=== PATIENT | female | born 1990 | race Two or more races ===

== ENCOUNTER 2018-11-08 22:44 | Inpatient (IN) | payer MEDICAID ==
[~2018-11-08] VITALS: Ht 167.6 cm; Wt 77.1 kg
[2018-11-08] MEDS ORDERED: PROAIR HFA8.5 GM INH (22:57)
[2018-11-08 23:00] VITALS: BP 108/42
--- NOTE | 2018-11-08 23:00 | NUR ---
ED Nurse Note: Pt arrived ambulatory to ED with SOB and wheezing. Pt states her albuterol prescription is empty and she hasnt had her treatments in 4 days. Pt states she has hx of intubation. Last one was last year. Current vital signs steady. O2 sat: 98%. BP WNL. HR 98. Will continue to monitor.
[2018-11-08] MEDS ORDERED: Ipratropium 0.02% Inh Soln 2.5ml UD HHN ONE (23:15)
[2018-11-08] MEDS ORDERED: Albuterol ud Inhalation HHN ONE (23:15)
--- NOTE | 2018-11-08 23:35 | Emergency Room Report ---
History of Present Illness General Chief Complaint: Asthma Source: Patient Present Illness HPI Patient presents with complaints of asthma exacerbation Reports that she has been out of her medication for the past 3 days and has not become more congested Having increased cough Denies any fevers Patient has significant asthma with last hospital presentation about one month ago Denies any fevers or chills patient does report that she has required to be intubated in the past Denies any focal weakness denies any recent travel Allergies: Coded Allergies: No Known Allergies (Unverified , 11/08/18) Patient History Past Medical History: see triage record Pertinent Family History: none Last Menstrual Period: 11/03/18 Now: No Reviewed Nursing Documentation: PMH: Agreed; PSxH: Agreed Nursing Documentation-PMH Past Medical History: No History, Except For Hx Asthma: Yes Review of Systems All Other Systems: negative except mentioned in HPI Physical Exam Vital Signs Date Time Temp Pulse Resp B/P (MAP) Pulse Ox O2 Delivery O2 Flow Rate FiO2 11/08/18 22:53 98.4 104 26 108/42 100 11/08/18 23:21 Room Air 21 Sp02 EP Interpretation: reviewed, normal General Appearance: mild distress - Short of breath Head: normocephalic, atraumatic Eyes: bilateral eye PERRL, bilateral eye EOMI ENT: hearing grossly normal, normal pharynx, TMs + canals normal, uvula midline Neck: full range of motion, supple, no meningismus, no bony tend Respiratory: no retraction, no accessory muscle use, wheezing - Bilaterally Cardiovascular #1: normal peripheral pulses, regular rate, rhythm, no edema, no gallop, no JVD, no murmur Gastrointestinal: normal bowel sounds, non tender, soft, no mass, no organomegaly, non-distended, no guarding, no hernia, no pulsatile mass, no rebound Genitourinary: no CVA tenderness Musculoskeletal: normal inspection Neurologic: oriented x3, responsive, employment interviewer III-XII nml as tested, motor strength/ tone normal, sensory intact Psychiatric: mood/affect normal Skin: normal color, no rash, warm/dry, palpation normal Lymphatic: normal inspection, no adenopathy Procedures Critical Care Time Critical Care Time 40 minutes for multiple re-evaluations continued care and evaluation of airway concern for respiratory failure not including any procedural time Medical Decision Making Diagnostic Impression: Primary Impression: Asthma attack ER Course Given the patient's history and presentation breathing treatments were initiated emergently Patient placed on cardiac monitoring Other differentials such as pneumonia, bronchitis, influenza also entertained After several attempts in the emergency room patient continues to have significant wheezing Symptomatic with her asthma IV is established and patient also provided with magnesium And at this time requires further inpatient care Labs Test 11/09/18 00:05 White Blood Count 11.0 K/UL (4.8-10.8) Red Blood Count 5.33 M/UL (4.20-5.40) Hemoglobin 13.8 G/DL (12.0-16.0) Hematocrit 42.7 % (37.0-47.0) Mean Corpuscular Volume 80 FL (80-99) Mean Corpuscular Hemoglobin 25.9 PG (27.0-31.0) Mean Corpuscular Hemoglobin Concent 32.3 G/DL (32.0-36.0) Red Cell Distribution Width 13.6 % (11.6-14.8) Platelet Count 223 K/UL (150-450) Mean Platelet Volume 7.4 FL (6.5-10.1) Neutrophils (%) (Auto) 56.7 % (45.0-75.0) Lymphocytes (%) (Auto) 21.6 % (20.0-45.0) Monocytes (%) (Auto) 7.7 % (1.0-10.0) Eosinophils (%) (Auto) 13.3 % (0.0-3.0) Basophils (%) (Auto) 0.6 % (0.0-2.0) Sodium Level 139 MMOL/L (136-145) Potassium Level 4.3 MMOL/L (3.5-5.1) Chloride Level 102 MMOL/L (98-107) Carbon Dioxide Level 29 MMOL/L (21-32) Anion Gap 8 mmol/L (5-15) Blood Urea Nitrogen 12 mg/dL (7-18) Creatinine 0.8 MG/DL (0.55-1.30) Estimat Glomerular Filtration Rate > 60 mL/min (>60) Glucose Level 72 MG/DL (74-106) Calcium Level 9.1 MG/DL (8.5-10.1) Urine Opiates Screen Negative (NEGATIVE) Urine Barbiturates Screen Negative (NEGATIVE) Phencyclidine (PCP) Screen Negative (NEGATIVE) Urine Amphetamines Screen Positive (NEGATIVE) Urine Benzodiazepines Screen Negative (NEGATIVE) Urine Cocaine Screen Negative (NEGATIVE) Urine Marijuana (THC) Screen Negative (NEGATIVE) Rhythm Strip Diag. Results EP Interpretation: yes Rate: 88 Rhythm: NSR, no PVC's, no ectopy Chest X-Ray Diagnostic Results Chest X-Ray Diagnostic Results : Chest X-Ray Ordered: Yes # of Views/Limited/Complete: 1 View Indication: Shortness of Breath EP Interpretation: Yes Interpretation: no effusion, no pneumothorax, other - Question regarding increased markings bilaterally more on the left on the right Impression: Other - Question patchy infiltrate Electronically Signed by: Dagmar Torres DO Last Vital Signs Date Time Temp Pulse Resp B/P (MAP) Pulse Ox O2 Delivery O2 Flow Rate FiO2 11/08/18 23:22 105 16 98 Room Air 21 11/08/18 22:53 98.4 108/42 Status: improved Disposition: ADMITTED INPATIENT Condition: Serious Scripts Trimethoprim/Sulfamethoxazole (Bactrim Ds Tablet) 1 Each Tablet 1 TAB ORAL TWICE A DAY for 7 Days, TAB Prov: Sondra Shaw MD 11/09/18 Methylprednisolone (Methylprednisolone*) 4MG Dspk 4 MG ORAL DIRECTED for 6 Days, #21 EA 0 Refills Day 1: Two tablets before breakfast, one after lunch, one after dinner, and two at bedtime. If started late in the day, take all six tablets at once or divide into two or three doses, unless otherwise directed by prescriber. Day 2: One tablet before breakfast, one after lunch, one after dinner, and two at bedtime Day 3: One tablet before breakfast, one after lunch, one after dinner, and one at bedtime Day 4: One tablet before breakfast, one after lunch, and one at bedtime Day 5: One tablet before breakfast and one at bedtime Day 6: One tablet before breakfast Prov: Sondra Shaw MD 11/09/18 Albuterol Sulfate* (ALBUTEROL SULFATE HHN*) 2.5 Mg/3 Ml Vial.neb 3 ML INH Q4H PRN for 30 Days, EA Prov: Sondra Shaw MD 11/09/18 Referrals: NOT CHOSEN IPA/,REFERRING (PCP) Dagmar Torres DO Nov 08, 2018 23:35
--- NOTE | 2018-11-08 23:40 | NUR ---
ED Nurse Note: Pt currently receiving breathing treatment. Tolerating well. Shows no signs of acute distress. Will continue to monitor
[2018-11-09] MEDS ORDERED: Albuterol ud Inhalation HHN ONE ×3 (00:15→07:15)
[2018-11-09] MEDS ORDERED: Levalbuterol Inh UD 1.25mg/0.5ml HHN ONE (01:45)
--- NOTE | 2018-11-09 02:15 | NUR ---
ED Nurse Note: Wheezing heard bilaterally upon inhale and exhale. O2 saturation @ 98%. Pt coughing up phlegm. Currently resting comfortably. Pt put on NC2L while resting.
[2018-11-09 02:29] VITALS: BP 104/42
--- NOTE | 2018-11-09 04:20 | NUR ---
ED Nurse Note: Pt to be admitted, [id number] inserted, fluids and mag sulfate currently running. Pt on 2L NC, currently resting comfortably. VSS. In acute distress. Will continue to monitor
[2018-11-09 04:30] LABS: BASOPHILS % (AUTO) 0.6 % (0.0-2.0); EOSINOPHILS % (AUTO) 13.3 % (0.0-3.0); HEMATOCRIT 42.7 % (37.0-47.0); HEMOGLOBIN 13.8 G/DL (12.0-16.0); LYMPHOCYTES % (AUTO) 21.6 % (20.0-45.0); MEAN CORPUSCULAR VOLUME 80 FL (80-99); MONOCYTES % (AUTO) 7.7 % (1.0-10.0); NEUTROPHILS % (AUTO) 56.7 % (45.0-75.0); PLATELET COUNT 223 K/UL (150-450); RED BLOOD COUNT 5.33 M/UL (4.20-5.40); RED CELL DISTRIBUTION WIDTH 13.6 % (11.6-14.8)
[2018-11-09 04:39] LABS: ANION GAP 8 mmol/L (5-15); BLOOD UREA NITROGEN 12 mg/dL (7-18); CALCIUM 9.1 MG/DL (8.5-10.1); CARBON DIOXIDE 29 MMOL/L (21-32); CHLORIDE 102 MMOL/L (98-107); CREATININE 0.8 MG/DL (0.55-1.30); POTASSIUM 4.3 MMOL/L (3.5-5.1); SODIUM 139 MMOL/L (136-145)
[2018-11-09 05:52] VITALS: BP 109/66
[2018-11-09] MEDS ORDERED: Promethazine/Codeine 5ml UD ORAL ONE (07:00)
[2018-11-09] MEDS ORDERED: Ipratropium 0.02% Inh Soln 2.5ml UD HHN ONE (07:15)
[2018-11-09 07:19] VITALS: BP 117/58
[2018-11-09] MEDS ORDERED: Racemic EPINEPHrine 2.25% 0.5ml HHN ONE (07:30)
--- NOTE | 2018-11-09 08:27 | NUR ---
ED Nurse Note: Called [facility]E spoke with Argelia the receiving nurse, unable to give report RN not ready. Per RN she needs 20minutes
--- NOTE | 2018-11-09 08:50 | NUR ---
ED Nurse Note: called [facility] again, Argelia RN was not available.
--- NOTE | 2018-11-09 08:55 | Diagnostic Imaging Report ---
Indication: Shortness of breath Technique: One view of the chest Comparison: none Findings: Inspiration is suboptimal. There is mild generalized interstitial prominence and marked central bronchial wall thickening. The heart size is normal. Impression: Interstitial prominence and marked central bronchial wall thickening. Nonspecific, could represent bronchitis, asthma, or interstitial edema. Correlate with clinical findings
--- NOTE | 2018-11-09 09:05 | NUR ---
ED Nurse Note: report given to Argelia RN per Argelia, bring up patient in 10 minutes, they're getting the new room ready 415
[2018-11-09] MEDS ORDERED: Albuterol/Ipratropium 3ml neb HHN PRN (09:15)
[2018-11-09] MEDS ORDERED: Promethazine/Codeine 5ml UD ORAL PRN (09:15)
[2018-11-09] MEDS ORDERED: LORazepam Inj 2mg/ml 1ml IV PRN (09:15)
[2018-11-09] MEDS ORDERED: Nitroglycerin Subl 0.4mg tab SL PRN (09:15)
[2018-11-09] MEDS ORDERED: Ketorolac 30mg Inj IV PRN (09:15)
[2018-11-09] MEDS ORDERED: Morphine Sulfate 2mg/ml Inj(IV/IM USE ONLY) IVP PRN (09:15)
--- NOTE | 2018-11-09 09:20 | NUR ---
ED Nurse Note: patient was transferred to in a wheelchair with all her belongings. endorsed to Argelia SIGALA at bedside.
[2018-11-09 09:48] VITALS: BP 110/68
[2018-11-09 12:00] VITALS: BP 111/67
[2018-11-09] MEDS ORDERED: Solu-MEDROL 125mg Inj IV SCH (12:00)
[2018-11-09] MEDS ORDERED: Piperacillin/Tazobactam 2.25 GM in D5W 55 ML IV SCH (14:00)
[2018-11-09] MEDS ORDERED: Zosyn 3.375gm q8h **Extended infusion IVPB SCH ×2 (14:00)
[2018-11-09] MEDS ORDERED: ALBUTEROL2.5 MG/3 M INH (14:55)
[2018-11-09] MEDS ORDERED: MEDROL DOSEPAK4 MG ORAL (14:56)
[2018-11-09] MEDS ORDERED: BACTRIM-DS1 EA ORAL (14:56)
--- NOTE | 2018-11-09 15:01 | Consultation ---
History of Present Illness General Date patient seen: Nov 09, 2018 Chief Complaint: Asthma Present Illness HPI 27 year old female with hx of asthma presented to ER with complaints of asthma exacerbation Reports that she has been out of her medication for the past 3 days and has not become more congested Having increased cough. Pt is admitted for acute exacerbation of asthma. Allergies: Coded Allergies: No Known Allergies (Unverified , 11/08/18) Medication History Scheduled Albuterol Sulfate* (Proair Hfa*), 1 PUFF INH Q6H, (Reported) Methylprednisolone (Methylprednisolone*), 4 MG ORAL DIRECTED Trimethoprim/Sulfamethoxazole (Bactrim Ds Tablet), 1 TAB ORAL TWICE A DAY Scheduled PRN Albuterol Sulfate* (Albuterol Sulfate Hhn*), 3 ML INH Q4H PRN Patient History Healthcare decision maker Resuscitation status Full Code Advanced Directive on File Past Medical/Surgical History Past Medical/Surgical History: (1) History of asthma (2) Acute asthma exacerbation Review of Systems All Other Systems: negative except mentioned in HPI Physical Exam General Appearance: WD/WN, no apparent distress Lines, tubes and drains: peripheral HEENT: normocephalic, anicteric Neck: non-tender, supple Respiratory/Chest: chest wall non-tender, lungs clear Breasts: no masses Cardiovascular/Chest: normal rate Abdomen: normal bowel sounds, non tender Last 24 Hour Vital Signs Date Time Temp Pulse Resp B/P (MAP) Pulse Ox O2 Delivery O2 Flow Rate FiO2 11/09/18 12:00 97.6 94 18 111/67 (82) 94 11/09/18 09:59 Room Air 11/09/18 09:48 98.6 97 18 110/68 (82) 94 11/09/18 09:40 97 19 Room Air 21 11/09/18 09:25 98.8 94 19 117/58 100 Nasal Cannula 2.0 28 11/09/18 08:15 106 19 100 Nasal Cannula 2.0 28 11/09/18 07:47 94 18 100 Nasal Cannula 2.0 28 11/09/18 07:45 94 18 100 Nasal Cannula 2.0 28 11/09/18 07:29 98 25 97 Nasal Cannula 2.0 28 11/09/18 07:28 98 25 Nasal Cannula 2.0 28 11/09/18 07:19 98.8 94 20 117/58 95 Room Air 11/09/18 05:52 98.8 80 20 109/66 100 Nasal Cannula 2.0 11/09/18 03:45 96 22 100 Nasal Cannula 2.0 28 11/09/18 02:29 98.2 95 16 104/42 98 Room Air 21 11/09/18 02:24 89 16 100 Nasal Cannula 2.0 28 11/09/18 02:06 103 19 100 Room Air 11/09/18 01:39 94 18 97 Room Air 11/09/18 00:31 96 19 100 Room Air 11/09/18 00:08 94 20 100 Room Air 11/08/18 23:55 94 20 100 Room Air 11/08/18 23:37 105 16 Room Air 11/08/18 23:22 105 16 98 Room Air 11/08/18 23:21 105 16 Room Air 11/08/18 23:00 98.4 98 26 108/42 100 11/08/18 22:53 98.4 104 26 108/42 100 Intake and Output 11/08/18 11/09/18 19:00 07:00 Intake Total 100 ml Balance 100 ml Intake IV Total 100 ml Laboratory Tests Test 11/09/18 00:05 White Blood Count 11.0 K/UL (4.8-10.8) H Red Blood Count 5.33 M/UL (4.20-5.40) Hemoglobin 13.8 G/DL (12.0-16.0) Hematocrit 42.7 % (37.0-47.0) Mean Corpuscular Volume 80 FL (80-99) Mean Corpuscular Hemoglobin 25.9 PG (27.0-31.0) L Mean Corpuscular Hemoglobin Concent 32.3 G/DL (32.0-36.0) Red Cell Distribution Width 13.6 % (11.6-14.8) Platelet Count 223 K/UL (150-450) Mean Platelet Volume 7.4 FL (6.5-10.1) Neutrophils (%) (Auto) 56.7 % (45.0-75.0) Lymphocytes (%) (Auto) 21.6 % (20.0-45.0) Monocytes (%) (Auto) 7.7 % (1.0-10.0) Eosinophils (%) (Auto) 13.3 % (0.0-3.0) H Basophils (%) (Auto) 0.6 % (0.0-2.0) Sodium Level 139 MMOL/L (136-145) Potassium Level 4.3 MMOL/L (3.5-5.1) Chloride Level 102 MMOL/L (98-107) Carbon Dioxide Level 29 MMOL/L (21-32) Anion Gap 8 mmol/L (5-15) Blood Urea Nitrogen 12 mg/dL (7-18) Creatinine 0.8 MG/DL (0.55-1.30) Estimat Glomerular Filtration Rate > 60 mL/min (>60) Glucose Level 72 MG/DL (74-106) L Calcium Level 9.1 MG/DL (8.5-10.1) Urine Opiates Screen Negative (NEGATIVE) Urine Barbiturates Screen Negative (NEGATIVE) Phencyclidine (PCP) Screen Negative (NEGATIVE) Urine Amphetamines Screen Positive (NEGATIVE) H Urine Benzodiazepines Screen Negative (NEGATIVE) Urine Cocaine Screen Negative (NEGATIVE) Urine Marijuana (THC) Screen Negative (NEGATIVE) Height (Feet): 5 Height (Inches): 6.00 Weight (Pounds): 170 Medications Current Medications Medications (Trade) Dose Ordered Sig/Atif Route PRN Reason Start Time Stop Time Status Last Admin Dose Admin Albuterol/ Ipratropium (Albuterol/ Ipratropium) 3 ml Q4H PRN HHN dyspnea 11/09/18 09:15 11/14/18 09:14 Dextrose (Dextrose 50%) 25 ml Q30M PRN IV Hypoglycemia 11/09/18 09:15 12/09/18 09:14 Dextrose (Dextrose 50%) 50 ml Q30M PRN IV Hypoglycemia 11/09/18 09:15 12/09/18 09:14 Heparin Sodium (Porcine) (Heparin 5000 units/ml) 5,000 units EVERY 12 HOURS SUBQ 11/09/18 21:00 12/09/18 20:59 Ketorolac Tromethamine (Toradol 30mg) 30 mg Q8H PRN IV moderate pain 4-11/09/18 09:15 11/14/18 09:14 Lorazepam (Ativan 2mg/ml 1ml) 0.5 mg Q4H PRN IV For Anxiety 11/09/18 09:15 11/16/18 09:14 Methylprednisolone Sodium Succinate (Solu-MEDROL) 60 mg EVERY 6 HOURS IV 11/09/18 12:00 12/09/18 11:59 11/09/18 12:45 Morphine Sulfate (Morphine Sulfate) 2 mg Q4H PRN IVP severe pain 7-10 11/09/18 09:15 11/16/18 09:14 Nitroglycerin (Ntg) 0.4 mg Q5M X 3 DOSES PRN SL Prn Chest Pain 11/09/18 09:15 12/09/18 09:14 Ondansetron HCl (Zofran) 4 mg Q6H PRN IVP Nausea & Vomiting 11/09/18 09:15 12/09/18 09:14 Piperacillin Sod/ Tazobactam Sod 3.375 gm/Sodium Chloride 110 ml @ 27.5 mls/hr EVERY 8 HOURS IVPB 11/09/18 14:00 11/14/18 13:59 11/09/18 14:38 Promethazine HCl/ Codeine (Phenergan with Codeine) 5 ml Q6H PRN ORAL cough 11/09/18 09:15 12/09/18 09:14 11/09/18 14:41 Temazepam (Restoril) 15 mg HSPRN PRN ORAL Insomnia 11/09/18 09:15 11/16/18 09:14 Theophylline ([place]) 100 mg EVERY 12 HOURS ORAL 11/09/18 21:00 12/09/18 20:59 Assessment/Plan Problem List: (1) Acute asthma exacerbation ICD Codes: J45.901 - Unspecified asthma with (acute) exacerbation SNOMED: [id number] Assessment/Plan Improving dc home with inhalers, abx and steroids Sondra Shaw MD Nov 09, 2018 15:01
[2018-11-09] MEDS ORDERED: Tubing IV Secondary IV ONE (16:20)
[2018-11-09] MEDS ORDERED: NS 275ml ONE (16:20)
--- NOTE | 2018-11-09 16:59 | NUR ---
NURSE NOTES: Patient transferred from ER at 0915 via wheelchair. Report received from ZAKIYA Gross. Belongings reviewed and accounted for. Patient oriented to room. Will continue to monitor.
--- NOTE | 2018-11-09 17:00 | NUR ---
NURSE NOTES: Patient discharged home via private vehicle. Belongings reviewed and accounted for. Discharge instructions given to patient. Prescriptions given to patient. IV removed. Patient stable upon discharge.
[2018-11-09] MEDS ORDERED: Theophylline ER 100mg ORAL SCH (21:00)
[2018-11-09] MEDS ORDERED: Heparin 5000 units/ml inj SUBQ SCH (21:00)
--- NOTE | 2018-11-10 09:41 | Discharge Summary ---
Discharge Summary Discharge Summary _ DATE OF ADMISSION: 11/09/2018 DATE OF DISCHARGE: 11/09/2018 DISCHARGED BY: Dr. Sondra Shaw [facility] HOSPITAL COURSE: Patient is a 27-year-old female, with history of asthma, presented to ED complaining of shortness of breath. Patient reported she had been out of her medications for 3 days and became more congested with increased cough. She denied fever. Denied any focal weakness. Denied any recent travel. On evaluation at ED, vital signs were stable. She was given nebulizer treatment. She continued to have wheezing. Blood work was stable. Chest x- ray showed interstitial prominence and marked central bronchial wall thickening. She was started on Levaquin. She was admitted for asthma exacerbation. Patient was admitted to [facility] floor. She was started on IV Solu-Medrol. She was given Zosyn. Patient was breathing well and was saturating well. It was eventually discharged home with inhalers to continue antibiotics and steroids. FINAL DIAGNOSES: Acute asthma exacerbation DISPOSITION: Patient was discharged home. DISCHARGE MEDICATIONS: Refer to Discharge Medication List. DISCHARGE INSTRUCTIONS: Follow-up in a week. I have been assigned to complete a discharge summary on this account, I was not involved with the patient's management. Linnette Rivas NP Nov 10, 2018 09:40
--- NOTE | 2018-11-12 16:23 | NUR ---
CASE MANAGEMENT: CM review and clinical information (face sheet/ ER MD notes/ H&P/ ) [facility] [phone] [id number]
== END 2018-11-09 16:21 | disposition home or self-care (01) | DRG 141 ==
LOC: EMR 23:13 → 4E 11-09 06:59 → EDBEDREQ 11-09 08:27
DX: J45.901 Unspecified asthma with (acute) exacerbation (principal)
CPT/HCPCS: 36415; 71045; 80048; 80307; 85025; 87040; 94640; 94664; 96365; 96368; 99285; J7620

== ENCOUNTER 2018-11-14 07:36 | Inpatient (IN) | payer MEDICAID ==
[2018-11-14] VITALS (42 sets, daily range): BP systolic 91–118; BP diastolic 46–96
[~2018-11-14] VITALS: Ht 165.1 cm; Wt 80.4 kg
[~2018-11-14 07:36] MED LIST: ALBUTEROL2.5 MG/3 M INH; BACTRIM-DS1 EA ORAL; MEDROL DOSEPAK4 MG ORAL; PROAIR HFA8.5 GM INH
[2018-11-14] MEDS ORDERED: Naloxone 1mg/ml 2ml IM ONE (07:45)
[2018-11-14] MEDS ORDERED: Ipratropium 0.02% Inh Soln 2.5ml UD HHN ONE ×3 (07:45→08:15)
[2018-11-14] MEDS ORDERED: Solu-MEDROL 125mg Inj IVP ONE (07:45)
[2018-11-14] MEDS ORDERED: Albuterol ud Inhalation HHN ONE (07:45)
--- NOTE | 2018-11-14 07:52 | NUR ---
ED Nurse Note: patient brought into ED with by her friend due to shortness of breath. patient is alert and awake, but not answering any questions at this time, patient is significantly having SOB, placed her on the monitor.
[2018-11-14] MEDS ORDERED: LORazepam Inj 2mg/ml 1ml IV ONE ×2 (08:00)
--- NOTE | 2018-11-14 08:00 | NUR ---
ED Nurse Note: ERMD at bedside. Applied non-behavioral restraints to bilateral hands and feet as patient is agitated and moving cardiac cables. Patient did not sustain any injury.
[2018-11-14] MEDS ORDERED: Naloxone 0.4mg/ml Inj IM ONE (08:15)
[2018-11-14] MEDS ORDERED: fentaNYL 100 mcg/2 mL IV ONE (08:15)
[2018-11-14] MEDS ORDERED: Propofol 200mg/20ml IV ONE (08:27)
--- NOTE | 2018-11-14 08:35 | NUR ---
ED Nurse Note: RN removed Versed 5mg by override and administered Versed 5mg IVP as patient became very agitated and pulling tubing and IV lines. Addendum: 11/14/18 at 1256 by CAROLA Verified the med with ZAKIYA Gross. SURENDRA at bedside.
--- NOTE | 2018-11-14 08:37 | NUR ---
ED Nurse Note: propofol drip started at 10mcg/hr per Dr. Nelson's order. patient is +2 RASS score.
--- NOTE | 2018-11-14 08:39 | NUR ---
ED Nurse Note: propofol drip increased to 20mcg/hr per Dr. Nelson's verbal order. Vitals:HR 138 RR 23 SpO2 100%, 157/93 BP.
[2018-11-14 08:43] LABS: ANION GAP 10 mmol/L (5-15); BLOOD UREA NITROGEN 16 mg/dL (7-18); CALCIUM 8.7 MG/DL (8.5-10.1); CARBON DIOXIDE 26 MMOL/L (21-32); CHLORIDE 102 MMOL/L (98-107); CREATININE 0.7 MG/DL (0.55-1.30); POTASSIUM 5.2 MMOL/L (3.5-5.1); SODIUM 137 MMOL/L (136-145)
--- NOTE | 2018-11-14 08:45 | Emergency Room Report ---
History of Present Illness General Chief Complaint: Dyspnea/Respdistress Source: Patient Present Illness HPI Patient came in for difficulty breathing. The patient has a history of asthma and has been to this emergency department multiple times for severe asthma exacerbations. Her last admission was within the last month. The patient is very short of breath. She is very anxious and agitated. She has a known history of drug abuse. The patient was unable to articulate a history to me secondary to respiratory distress and agitation. Allergies: Coded Allergies: No Known Allergies (Unverified , 11/08/18) Patient History Past Medical History: see triage record, asthma Social History: Reports: drug use; Denies: smoking, alcohol use Reviewed Nursing Documentation: PMH: Agreed; PSxH: Agreed Nursing Documentation-PMH Past Medical History: No History, Except For Hx Cardiac Problems: No Hx Asthma: Yes Hx Cancer: No Hx Gastrointestinal Problems: No Hx Neurological Problems: No Review of Systems All Other Systems: negative except mentioned in HPI Physical Exam Vital Signs Date Time Temp Pulse Resp B/P (MAP) Pulse Ox O2 Delivery O2 Flow Rate FiO2 11/14/18 07:42 96.1 129 16 156/81 100 Simple Mask 12.0 Sp02 EP Interpretation: reviewed, normal General Appearance: GCS 15, moderate distress, other - altered, agitated, at times lethargic Head: normocephalic, atraumatic Eyes: bilateral eye normal inspection, bilateral eye PERRL ENT: hearing grossly normal, normal pharynx, no angioedema, normal voice Neck: full range of motion, supple/symm/no masses Respiratory: chest non-tender, accessory muscle use, wheezing, expiration Cardiovascular #1: no edema, tachycardia Gastrointestinal: normal bowel sounds, non tender, soft, non-distended, no guarding, no rebound Rectal: deferred Musculoskeletal: back normal, gait/station normal, normal range of motion, non- tender Neurologic: alert, responsive, motor strength/tone normal, speech normal Psychiatric: memory normal, no suicidal/homicidal ideation, anxious Skin: normal color, no rash, warm/dry, well hydrated Procedures Intubation Intubation : Consent: Emergent Intubation Method: orotracheal Tube Size (cm): 7.5 Medications: Etomidate, Succinylcholine Breath Sounds after Intubation: equal Intubation Complications: no complications Post Intubation Xray: Yes Progress/Xray Impression: Appropriate tube placement Attempts: One Patient Tolerated: Well Complications: None Medical Decision Making Diagnostic Impression: Primary Impression: Respiratory failure Additional Impressions: Status asthmaticus Polysubstance dependence including opioid drug with daily use ER Course This patient presented in respiratory distress. She was wheezing, tachypneic and agitated. She was also altered and sleepy and at times would answer questions but at other times was lethargic. The patient had been to the emergency department recently, and had been found to be abusing drugs. Given the patient's presentation, I was concerned that the patient had overdosed on and opioid given how altered she was on arrival. The patient was given 0.4 mg of Narcan IM and the patient immediately woke up and became very agitated and combative. She also continued to have tachypnea, wheezing and dyspnea. The patient was combative with wearing the nebulizer mask and was agitated and a danger to herself. Also, the patient's ABG was consistent with respiratory failure. I didn't feel that noninvasive ventilation was an option for this very agitated and combative patient and that she needed an urgent airway. She was intubated by rapid sequence intubation. See my procedure note. The palpation was positive for multiple illicit drugs. I suspect that the patient' s respiratory failure are likely related to her polydrug abuse in addition to her known asthma. The patient required maximal doses of sedatives and remained ventilated in the emergency department. She is admitted to the ICU. This patient is critically ill. This patient required complex medical decision- making, aggressive intervention, extensive laboratory workup and monitoring. Critical care time: 40 minutes. Laboratory Tests Test 11/14/18 07:50 11/14/18 08:21 11/14/18 09:00 Arterial Blood pH 7.113 (7.350-7.450) Arterial Blood Partial Pressure CO2 86.9 mmHg (35.0-45.0) *H Arterial Blood Partial Pressure O2 108.9 mmHg (75.0-100.0) H Arterial Blood HCO3 27.2 mmol/L (22.0-26.0) H Arterial Blood Oxygen Saturation 96.2 % (95-100) Arterial Blood Base Excess -4.5 (-2-2) L Kike Test Positive Sodium Level 137 MMOL/L (136-145) Potassium Level 5.2 MMOL/L (3.5-5.1) H Chloride Level 102 MMOL/L (98-107) Carbon Dioxide Level 26 MMOL/L (21-32) Anion Gap 10 mmol/L (5-15) Blood Urea Nitrogen 16 mg/dL (7-18) Creatinine 0.7 MG/DL (0.55-1.30) Estimate Glomerular Filtration Rate > 60 mL/min (>60) Glucose Level 199 MG/DL (74-106) H Calcium Level 8.7 MG/DL (8.5-10.1) Total Bilirubin 0.3 MG/DL (0.2-1.0) Aspartate Amino Transferase (AST) 17 U/L (15-37) Alanine Aminotransferase (ALT) 19 U/L (12-78) Alkaline Phosphatase 93 U/L (46-116) Troponin I 0.000 ng/mL (0.000-0.056) Pro-B-Type Natriuretic Peptide 107 pg/mL (0-125) Total Protein 8.0 G/DL (6.4-8.2) Albumin 3.8 G/DL (3.4-5.0) Globulin 4.2 g/dL Albumin/Globulin Ratio 0.9 (1.0-2.7) L Triglycerides Level 52 MG/DL (30-150) Thyroid Stimulating Hormone (TSH) 0.823 uiU/mL (0.358-3.740) Serum Alcohol < 3 mg/dL White Blood Count 14.2 K/UL (4.8-10.8) H Red Blood Count 4.17 M/UL (4.20-5.40) L Hemoglobin 10.5 G/DL (12.0-16.0) L Hematocrit 36.4 % (37.0-47.0) L Mean Corpuscular Volume 87 FL (80-99) Mean Corpuscular Hemoglobin 25.3 PG (27.0-31.0) L Mean Corpuscular Hemoglobin Concent 29.0 G/DL (32.0-36.0) L Red Cell Distribution Width 15.0 % (11.6-14.8) H Platelet Count 215 K/UL (150-450) Mean Platelet Volume 8.3 FL (6.5-10.1) Neutrophils (%) (Auto) 74.0 % (45.0-75.0) Lymphocytes (%) (Auto) 10.5 % (20.0-45.0) L Monocytes (%) (Auto) 6.8 % (1.0-10.0) Eosinophils (%) (Auto) 7.8 % (0.0-3.0) H Basophils (%) (Auto) 0.8 % (0.0-2.0) Urine Color Yellow Urine Appearance Clear Urine pH 5 (4.5-8.0) Urine Specific [place] 1.030 (1.005-1.035) Urine Protein 3+ (NEGATIVE) H Urine Glucose (UA) Negative (NEGATIVE) Urine Ketones 1+ (NEGATIVE) H Urine Blood 3+ (NEGATIVE) H Urine Nitrite Negative (NEGATIVE) Urine Bilirubin Negative (NEGATIVE) Urine Urobilinogen Normal MG/DL (0.0-1.0) Urine Leukocyte Esterase Negative (NEGATIVE) Urine RBC 5-10 /HPF (0 - 2) H Urine WBC 0-2 /HPF (0 - 2) Urine Squamous Epithelial Cells Moderate /LPF (NONE/OCC) H Urine Bacteria Few /HPF (NONE) Urine HCG, Qualitative Negative (NEGATIVE) Urine Opiates Screen Positive (NEGATIVE) H Urine Barbiturates Screen Negative (NEGATIVE) Phencyclidine (PCP) Screen Negative (NEGATIVE) Urine Amphetamines Screen Positive (NEGATIVE) H Urine Benzodiazepines Screen Positive (NEGATIVE) H Urine Cocaine Screen Negative (NEGATIVE) Urine Marijuana (THC) Screen Negative (NEGATIVE) Laboratory Tests Test 11/14/18 07:50 11/14/18 08:21 Arterial Blood pH 7.113 (7.350-7.450) Arterial Blood Partial Pressure CO2 86.9 mmHg (35.0-45.0) *H Arterial Blood Partial Pressure O2 108.9 mmHg (75.0-100.0) H Arterial Blood HCO3 27.2 mmol/L (22.0-26.0) H Arterial Blood Oxygen Saturation 96.2 % (95-100) Arterial Blood Base Excess -4.5 (-2-2) L Kike Test Positive Sodium Level 137 MMOL/L (136-145) Potassium Level 5.2 MMOL/L (3.5-5.1) H Chloride Level 102 MMOL/L (98-107) Carbon Dioxide Level 26 MMOL/L (21-32) Anion Gap 10 mmol/L (5-15) Blood Urea Nitrogen 16 mg/dL (7-18) Creatinine 0.7 MG/DL (0.55-1.30) Estimate Glomerular Filtration Rate > 60 mL/min (>60) Glucose Level 199 MG/DL (74-106) H Calcium Level 8.7 MG/DL (8.5-10.1) Total Bilirubin 0.3 MG/DL (0.2-1.0) Aspartate Amino Transferase (AST) 17 U/L (15-37) Alanine Aminotransferase (ALT) 19 U/L (12-78) Alkaline Phosphatase 93 U/L (46-116) Troponin I Pending Pro-B-Type Natriuretic Peptide 107 pg/mL (0-125) Total Protein 8.0 G/DL (6.4-8.2) Albumin 3.8 G/DL (3.4-5.0) Globulin 4.2 g/dL Albumin/Globulin Ratio 0.9 (1.0-2.7) L Triglycerides Level 52 MG/DL (30-150) Thyroid Stimulating Hormone (TSH) 0.823 uiU/mL (0.358-3.740) Serum Alcohol < 3 mg/dL EKG Diagnostic Results Rate: tachycardiac Rhythm: other - S.tachycardia ST Segments: no acute changes Rhythm Strip Diag. Results EP Interpretation: yes Rate: 120's Rhythm: no PVC's, no ectopy, other - S.tachycardia Chest X-Ray Diagnostic Results Chest X-Ray Diagnostic Results : Chest X-Ray Ordered: Yes # of Views/Limited/Complete: 1 View Indication: Shortness of Breath EP Interpretation: Yes Interpretation: no consolidation, no effusion, no pneumothorax, no acute cardiopulmonary disease, other - Appropriate ET tube placement Impression: No acute disease Electronically Signed by: Ramona Nelson DO Last Vital Signs Date Time Temp Pulse Resp B/P (MAP) Pulse Ox O2 Delivery O2 Flow Rate FiO2 11/14/18 07:42 96.1 129 16 156/81 100 Simple Mask 12.0 Disposition: ADMITTED INPATIENT Condition: Critical Referrals: [facility]AN[facility],REFERRING (PCP) Ramona Nelson DO Nov 14, 2018 08:45
--- NOTE | 2018-11-14 08:54 | NUR ---
ED Nurse Note: Dr. Nelson gave verbal order to increase propofol to 50mcg/hr, patient is very agitated and fighting vent.
[2018-11-14 08:55] LABS: ALANINE AMINOTRANSFERASE 19 U/L (12-78); ALBUMIN 3.8 G/DL (3.4-5.0); ALBUMIN/GLOBULIN RATIO 0.9 (1.0-2.7); ALKALINE PHOSPHATASE 93 U/L (46-116); ASPARTATE AMINO TRANSFERASE 17 U/L (15-37); BILIRUBIN,TOTAL 0.3 MG/DL (0.2-1.0); TRIGLYCERIDES 52 MG/DL (30-150)
--- NOTE | 2018-11-14 08:55 | NUR ---
Note tamia in EDM - 11/14/18 at 0911 by LISA ED Nurse Note: Dr. Nelson gave verbal order to increase propofol to 50mcg/hr, patient is very agitated and fighting vent.
--- NOTE | 2018-11-14 09:00 | NUR ---
ED Nurse Note: Dr. Nelson made aware of Urine just sent down to lab for , Dr. Nelson said do CXR stat.
--- NOTE | 2018-11-14 09:04 | NUR ---
ED Nurse Note: cxr stat being done at the bedside.
[2018-11-14] MEDS ORDERED: Albuterol ud Inhalation ONE (09:05)
[2018-11-14 09:16] LABS: APPEARANCE,URINE CLEAR; BILIRUBIN, URINE NEGATIVE (NEGATIVE); GLUCOSE, URINE (UA) NEGATIVE (NEGATIVE); KETONES,URINE 1+ (NEGATIVE); LEUKOCYTE ESTERASE ,URINE NEGATIVE (NEGATIVE); NITRITE,URINE NEGATIVE (NEGATIVE); PH,URINE 5 (4.5-8.0); PROTEIN,URINE 3+ (NEGATIVE); UROBILINOGEN,URINE NORMAL MG/DL (0.0-1.0)
[2018-11-14 09:18] LABS: BASOPHILS % (AUTO) 0.8 % (0.0-2.0); EOSINOPHILS % (AUTO) 7.8 % (0.0-3.0); HEMATOCRIT 36.4 % (37.0-47.0); HEMOGLOBIN 10.5 G/DL (12.0-16.0); LYMPHOCYTES % (AUTO) 10.5 % (20.0-45.0); MEAN CORPUSCULAR VOLUME 87 FL (80-99); MONOCYTES % (AUTO) 6.8 % (1.0-10.0); PLATELET COUNT 215 K/UL (150-450); RED BLOOD COUNT 4.17 M/UL (4.20-5.40); WHITE BLOOD COUNT 14.2 K/UL (4.8-10.8)
[2018-11-14 09:19] LABS: COLOR,URINE YELLOW
--- NOTE | 2018-11-14 09:23 | NUR ---
RADIOLOGY: HCG WAS ORDERED AT THE TIME OF CXR REQUEST, AND RADIOLOGY WAITED AN HOUR FOR THE HCG TO BE DRAWN AND FOR RESULTS. AT THIS POINT, ER CALLED ABOUT CXR, AND WE SAID WE WERE WAITING ON HCG. ER PHYSICIAN OVERRULED HCG (NO RESULT YET) AND REQUESTED STAT CXR TO CHECK FOR POSITION OF RECENTLY PLACED ETT. AT THIS POINT, RADIOLOGY RESPONDED TO ER WITHIN 5 MIN. - NF
[2018-11-14] MEDS ORDERED: Etomidate 40mg/20ml Inj IV ONE (10:00)
[2018-11-14] MEDS ORDERED: Succinylcholine 20mg/ml 10ml vial ONE (10:00)
--- NOTE | 2018-11-14 10:00 | NUR ---
ED Nurse Note: Rechecked patient's non-behavioral restraints (soft) on bilateral wrists an feet. No injury noted.
--- NOTE | 2018-11-14 10:19 | Diagnostic Imaging Report ---
Indication: Shortness of breath, post intubation Technique: One view of the chest Comparison: 11/09/2018 Findings: Interim endotracheal intubation, endotracheal tube tip in good position approximately 4 cm above the roberto. No definite acute infiltrates, effusions, or congestion. Improved aeration on the current exam Impression: Satisfactory endotracheal intubation No definite acute pulmonary process
--- NOTE | 2018-11-14 10:50 | NUR ---
RESPIRATORY NOTE: pt came to ER for SOB, audible wheezing heard on expiration. MD ordered breathing tx and decided to intubated. pt now intubated with 7.5 ETT placed 24cm at the lip. ETT is secured via anchor fast with no prior redness or skin breakdown. pt has been placed on AC 22 400 50% +5 on initial vent settings. pt presents clear/white, thin and frothy secretion upon sxn. pt not in resp distress at this time. alarm are audible and set. will cont to monitor.
--- NOTE | 2018-11-14 11:00 | NUR ---
ED Nurse Note: Orogastric tube inserted @ 28inch as ordered. X-ray tech at bedside for tubing placement.
--- NOTE | 2018-11-14 11:12 | NUR ---
ED Nurse Note: patient is being transferred up to ICU with RT and 2RN with all of her belongingss
--- NOTE | 2018-11-14 11:30 | NUR ---
NURSE NOTES: Report received from Stephen Gross RN. Pt arrived via gurney. Belongings checked. Pt is sedated and on bilateral soft wrist restraints. Sinus tachy on captain waiter/waitress with HR 100's. Orally intubated ETT 7.5/ 24 cm at lip line. On Ventilator with AC 22, TV 400, FiO2 45%, P 5. O2 sat 100%. Labored breathing noted. OGT in place and clamped. No edema and no skin problem noted. Mehta in place draining to gravity. IV to right hand G20, left hand G22, and left FA G20 patent and asymptomatic. Bed in lowest position. Side rails up x3. Will resume plan of care.
--- NOTE | 2018-11-14 12:02 | Diagnostic Imaging Report ---
Indication: Post nasogastric tube placement Technique: One view of the chest Comparison: 2 hours earlier Findings: Stable satisfactory position of endotracheal tube. Interim placement of nasogastric tube, tip projected at the level gastric antrum. Lungs and pleural spaces remain clear. Impression: Satisfactory nasogastric intubation Otherwise stable findings as described
[2018-11-14] MEDS ORDERED: Albuterol/Ipratropium 3ml neb HHN PRN (12:15)
--- NOTE | 2018-11-14 12:20 | History and Physical ---
History of Present Illness General Reason for Hospitalization: Dyspnea/Respdistress Present Illness HPI 27 year old female with hx of asthma, presented with shortness. She was in respiratory failure in ER and was intubated, and started on Fentanyl drip and transferred to ICU. Allergies: Coded Allergies: No Known Allergies (Unverified , 11/08/18) Medication History Scheduled Albuterol Sulfate* (Proair Hfa*), 1 PUFF INH Q6H, (Reported) Methylprednisolone (Methylprednisolone*), 4 MG ORAL DIRECTED Trimethoprim/Sulfamethoxazole (Bactrim Ds Tablet), 1 TAB ORAL TWICE A DAY Scheduled PRN Albuterol Sulfate* (Albuterol Sulfate Hhn*), 3 ML INH Q4H PRN Patient History Healthcare decision maker Resuscitation status Advanced Directive on File Past Medical/Surgical History Past Medical/Surgical History: (1) History of asthma Review of Systems All Other Systems: negative except mentioned in HPI Physical Exam General Appearance: WD/WN Lines, tubes and drains: peripheral HEENT: normocephalic, atraumatic Neck: non-tender, normal alignment Respiratory/Chest: chest wall non-tender, lungs clear Cardiovascular/Chest: normal peripheral pulses, normal rate Abdomen: normal bowel sounds, non tender Genitourinary/Rectal: normal genital exam, normal rectal exam Extremities: normal range of motion Skin Exam: normal pigmentation 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 normal Last 24 Hour Vital Signs Date Time Temp Pulse Resp B/P (MAP) Pulse Ox O2 Delivery O2 Flow Rate FiO2 11/14/18 11:09 21 45 11/14/18 11:09 21 103/77 Mechanical Ventilator 45 11/14/18 11:04 Mechanical Ventilator 45 11/14/18 10:59 18 Mechanical Ventilator 45 11/14/18 10:54 18 Mechanical Ventilator 45 11/14/18 10:54 22 98/56 Mechanical Ventilator 45 11/14/18 10:49 20 Mechanical Ventilator 45 11/14/18 10:48 108 28 50 11/14/18 10:44 21 Mechanical Ventilator 45 11/14/18 10:39 22 Mechanical Ventilator 45 11/14/18 10:39 18 102/53 Mechanical Ventilator 45 11/14/18 10:34 22 Mechanical Ventilator 45 11/14/18 10:29 21 Mechanical Ventilator 45 11/14/18 10:24 21 Mechanical Ventilator 45 11/14/18 10:24 21 123/100 Mechanical Ventilator 45 11/14/18 10:19 21 Mechanical Ventilator 45 11/14/18 10:14 18 Mechanical Ventilator 45 11/14/18 10:09 19 Mechanical Ventilator 45 11/14/18 10:09 21 120/69 Mechanical Ventilator 45 11/14/18 10:01 121 21 Mechanical Ventilator 12.0 45 11/14/18 09:54 20 104/67 Mechanical Ventilator 45 11/14/18 09:39 21 118/91 Mechanical Ventilator 12.0 45 11/14/18 09:30 96.1 121 25 103/67 100 Mechanical Ventilator 12.0 45 11/14/18 09:24 22 123/91 Mechanical Ventilator 12.0 45 11/14/18 09:17 132 24 Mechanical Ventilator 50 11/14/18 09:09 24 103/54 Mechanical Ventilator 50 11/14/18 09:06 134 25 50 11/14/18 08:57 96.1 11/14/18 08:55 136 24 100 Mechanical Ventilator 50 11/14/18 08:54 26 141/120 Mechanical Ventilator 50 11/14/18 08:39 24 141/120 Mechanical Ventilator 50 11/14/18 08:37 24 157/93 Mechanical Ventilator 50 11/14/18 07:50 131 28 97 Room Air 21 11/14/18 07:42 96.1 129 16 156/81 100 Simple Mask 12.0 Laboratory Tests Test 11/14/18 07:50 11/14/18 08:21 11/14/18 08:50 11/14/18 09:00 Arterial Blood pH 7.113 (7.350-7.450) 7.272 (7.350-7.450) Arterial Blood Partial Pressure CO2 86.9 mmHg (35.0-45.0) *H 54.8 mmHg (35.0-45.0) H Arterial Blood Partial Pressure O2 108.9 mmHg (75.0-100.0) H 179.6 mmHg (75.0-100.0) H Arterial Blood HCO3 27.2 mmol/L (22.0-26.0) H 24.7 mmol/L (22.0-26.0) Arterial Blood Oxygen Saturation 96.2 % (95-100) 98.9 % (95-100) Arterial Blood Base Excess -4.5 (-2-2) L -2.8 (-2-2) L Kike Test Positive Positive Sodium Level 137 MMOL/L (136-145) Potassium Level 5.2 MMOL/L (3.5-5.1) H Chloride Level 102 MMOL/L (98-107) Carbon Dioxide Level 26 MMOL/L (21-32) Anion Gap 10 mmol/L (5-15) Blood Urea Nitrogen 16 mg/dL (7-18) Creatinine 0.7 MG/DL (0.55-1.30) Estimat Glomerular Filtration Rate > 60 mL/min (>60) Glucose Level 199 MG/DL (74-106) H Calcium Level 8.7 MG/DL (8.5-10.1) Total Bilirubin 0.3 MG/DL (0.2-1.0) Aspartate Amino Transf (AST/SGOT) 17 U/L (15-37) Alanine Aminotransferase (ALT/SGPT) 19 U/L (12-78) Alkaline Phosphatase 93 U/L (46-116) Troponin I 0.000 ng/mL (0.000-0.056) Pro-B-Type Natriuretic Peptide 107 pg/mL (0-125) Total Protein 8.0 G/DL (6.4-8.2) Albumin 3.8 G/DL (3.4-5.0) Globulin 4.2 g/dL Albumin/Globulin Ratio 0.9 (1.0-2.7) L Triglycerides Level 52 MG/DL (30-150) Thyroid Stimulating Hormone (TSH) 0.823 uiU/mL (0.358-3.740) Serum Alcohol < 3 mg/dL White Blood Count 14.2 K/UL (4.8-10.8) H Red Blood Count 4.17 M/UL (4.20-5.40) L Hemoglobin 10.5 G/DL (12.0-16.0) L Hematocrit 36.4 % (37.0-47.0) L Mean Corpuscular Volume 87 FL (80-99) Mean Corpuscular Hemoglobin 25.3 PG (27.0-31.0) L Mean Corpuscular Hemoglobin Concent 29.0 G/DL (32.0-36.0) L Red Cell Distribution Width 15.0 % (11.6-14.8) H Platelet Count 215 K/UL (150-450) Mean Platelet Volume 8.3 FL (6.5-10.1) Neutrophils (%) (Auto) 74.0 % (45.0-75.0) Lymphocytes (%) (Auto) 10.5 % (20.0-45.0) L Monocytes (%) (Auto) 6.8 % (1.0-10.0) Eosinophils (%) (Auto) 7.8 % (0.0-3.0) H Basophils (%) (Auto) 0.8 % (0.0-2.0) Urine Color Yellow Urine Appearance Clear Urine pH 5 (4.5-8.0) Urine Specific Christine 1.030 (1.005-1.035) Urine Protein 3+ (NEGATIVE) H Urine Glucose (UA) Negative (NEGATIVE) Urine Ketones 1+ (NEGATIVE) H Urine Blood 3+ (NEGATIVE) H Urine Nitrite Negative (NEGATIVE) Urine Bilirubin Negative (NEGATIVE) Urine Urobilinogen Normal MG/DL (0.0-1.0) Urine Leukocyte Esterase Negative (NEGATIVE) Urine RBC 5-10 /HPF (0 - 2) H Urine WBC 0-2 /HPF (0 - 2) Urine Squamous Epithelial Cells Moderate /LPF (NONE/OCC) H Urine Bacteria Few /HPF (NONE) Urine HCG, Qualitative Negative (NEGATIVE) Urine Opiates Screen Positive (NEGATIVE) H Urine Barbiturates Screen Negative (NEGATIVE) Phencyclidine (PCP) Screen Negative (NEGATIVE) Urine Amphetamines Screen Positive (NEGATIVE) H Urine Benzodiazepines Screen Positive (NEGATIVE) H Urine Cocaine Screen Negative (NEGATIVE) Urine Marijuana (THC) Screen Negative (NEGATIVE) Height (Feet): 5 Height (Inches): 5.00 Weight (Pounds): 150 Medications Current Medications Medications (Trade) Dose Ordered Sig/Atif Route PRN Reason Start Time Stop Time Status Last Admin Dose Admin Fentanyl Citrate 1000 mcg/Sodium Chloride 100 ml @ 0 mls/hr Q24H IV 11/14/18 10:00 11/14/18 13:30 11/14/18 10:09 Propofol 100 ml @ 0 mls/hr Q24H IV 11/14/18 08:15 11/14/18 13:30 11/14/18 08:37 Assessment/Plan Problem List: (1) History of asthma ICD Codes: Z87.09 - Personal history of other diseases of the respiratory system SNOMED: 379143286 (2) Acute asthma exacerbation ICD Codes: J45.901 - Unspecified asthma with (acute) exacerbation SNOMED: 062381901 Respiratory: monitor respiratory rate, adjust FIO2, CXR Cardiac: continue to monitor HR/BP Renal: increase IV fluid, check electrolytes Infectious Disease: check cultures, continue antibiotics Gastrointestinal: hold feedings Endocrine: check TSH Hematologic: transfuse if hgb<8.5 Neurologic: PRN Ativan, PRN Morphine, keep patient comfortable Affect: PRN ativan Prophylaxis: Protonix Time Spent (Minutes): 40 Notes Reviewed: teacher education instructor Discussed with: nurses, consultants, casework manager Sondra Shaw MD Nov 14, 2018 12:20
[2018-11-14] MEDS ORDERED: Midazolam/D5W 100ml 100 ML IVPB PRN (12:30)
--- NOTE | 2018-11-14 12:33 | NUR ---
NURSE NOTES: Dr Shaw here to see the patient. Updated him with pt's current condition. Order for breathing tx and sedation medication received, noted, and carried out. He will enter the rest admission orders by himself as per Dr Shaw.
[2018-11-14] MEDS: Albuterol/Ipratropium 3ml neb HHN SCH ×9 (12:43→22:27)
[2018-11-14] MEDS: D5 1/2NS 1,000 ML IV SCH (12:45)
--- NOTE | 2018-11-14 12:51 | NUR ---
RESPIRATORY NOTE: vent settings adjusted per . RN, aware
[2018-11-14] MEDS ORDERED: Albuterol ud Inhalation HHN SCH (13:00)
--- NOTE | 2018-11-14 14:05 | NUR ---
NURSE NOTES: Pt is drowsy and got agitated and restless and trying to remove ETT. Assisted to calm her down. Continuous reorientation given. Increased Fentanyl drip rate. Pt back to be sedated and calm. Will start Versed drip as per order.
[2018-11-14] MEDS: Piperacillin/Tazobactam 3.375 GM in D5W 110 ML IVPB SCH ×2 (15:07→21:20)
--- NOTE | 2018-11-14 17:00 | NUR ---
NURSE NOTES: OGT reinserted. Pt tolerated well. Will order KUB to check placement. Hold feeding until placement is confirmed.
[2018-11-14] MEDS: Solu-MEDROL 125mg Inj IV SCH ×2 (17:27→23:46)
--- NOTE | 2018-11-14 17:34 | History & Physical ---
History and Physical History & Physicial Dictated for Int Med-Dr Garvey no. [id number]. Harsha Rivera MD Nov 14, 2018 17:34
[2018-11-14] MEDS ORDERED: Albuterol/Ipratropium 3ml neb HHN SCH (18:00)
--- NOTE | 2018-11-14 19:33 | NUR ---
HAND-OFF: Report given to ZAKIYA Bell.
--- NOTE | 2018-11-14 20:00 | NUR ---
NURSE NOTES: Patient received from Delia SIGALA. Patient is sedated with RASS score of -2. Midazolam and Fentanyl gtt running via peripheral lines. Patient BP currently is 98/59 (68), RR 16, Spo2 100% while on 40% FiO2, HR is 86 SR. Patient is Afebrile and cool to touch. Bilateral soft wrist restraints noted, pulses noted, skin intact. Patient has L hand 22G, L FA 20G, R Hand 20G. Patient also has D51/2NS running at 50ml/hr. All IV lines are patent/asymptomatic/intact. Patient has Jevity 1.2 at 20ml to be hung, awaiting KUB result; OGT. ETT 7.5/24cm AC 16, 500ml, 40% FiO2, and peep of 5. Overall skin is intact. Bed alarm on, bed in lowest position, vent tubings checked, will continue to monitor.
--- NOTE | 2018-11-14 20:01 | NUR ---
NURSE NOTES: X-ray staff at bedside performing KUB for OGT confirmation
[2018-11-14] MEDS: Heparin 5000 units/ml inj SUBQ SCH (20:31)
--- NOTE | 2018-11-14 21:30 | History and Physical Report ---
DATE OF ADMISSION: 11/14/2018 CHIEF COMPLAINT: The patient is a 27-year-old female with history of asthma who presents with a chief complaint of shortness of breath. HISTORY OF PRESENT ILLNESS: The patient has a history of asthma. The patient was admitted to [facility] on November 09, 2018. Please see history and physical and discharge summary dictated at that time. The patient presented to [facility] complaining of shortness of breath and wheezing. The patient was emergently intubated in the emergency room. The patient is admitted to the intensive care unit. The patient is admitted for acute exacerbation of chronic asthma. REVIEW OF SYSTEMS: Unable to assess secondary to the patient's intubation status. PAST MEDICAL HISTORY: Significant for asthma. PAST SURGICAL HISTORY: The patient denies. CURRENT MEDICATIONS: 1. Albuterol metered-dose inhaler two puffs p.o. p.r.n. 2. Albuterol 2.5 mg nebulized q.4 h. p.r.n. 3. Methylprednisolone 4 mg p.o. daily. 4. Bactrim double-strength one tablet p.o. twice daily. ALLERGIES: No known drug allergies. SOCIAL HISTORY: The patient is single and lives alone. The patient denies tobacco or alcohol use. PHYSICAL EXAMINATION: VITAL SIGNS: Temperature 96.1, respirations 17, pulse 91, and blood pressure 112/62. GENERAL: The patient is a well-developed and well-nourished female, in no apparent distress. HEENT: Eyes, pupils are equal and responsive to light and accommodation. Extraocular movements are intact. NECK: Supple without lymphadenopathy. CHEST: Diffuse wheezes in bilateral lung carr. Otherwise, without crackles. CARDIOVASCULAR: Regular rhythm and rate. S1 and S2 are normal without murmurs, rubs, or gallops. ABDOMEN: Soft, nontender, and nondistended. Positive bowel sounds. No evidence of hepatosplenomegaly. Currently, no rebound or guarding noted. EXTREMITIES: Negative for clubbing, cyanosis, or edema. NEUROLOGIC: Cranial nerves II through XII are grossly intact without focal deficits. LABORATORY STUDIES: WBC 14.2, hemoglobin , hematocrit 36.4, and platelets 215,000. Sodium 137, potassium 5.2, chloride 102, CO2 26, BUN 16, creatinine 0.7, and glucose 199. Urine toxicology was positive for opiates, amphetamines, and benzodiazepine. A chest x-ray was reported as no acute disease. ASSESSMENT: This is a 27-year-old female. 1. Respiratory failure/acute asthma exacerbation. A Pulmonary consultation has been obtained with Dr. Sondra Shaw. The patient is currently intubated in the intensive care unit. The patient is currently sedated. The patient has been started empirically on intravenous Solu-Medrol. The patient has also been started on intravenous Zosyn. We will follow recommendations of Pulmonary. Harsha Rivera M.D. DR: ALYSSA JOB#: [id number] CC:
--- NOTE | 2018-11-14 22:20 | NUR ---
NURSE NOTES: Patient self extubated while on bilateral soft wrist restraints. Patient was on Fentanyl and versed. Sedation was stopped immediately, and NC at 4L applied. Patient was Saturating at 98-100%. RR ranging from 12-20. Patient is arousable to stimulus, pain, patient does open eyes to command but still slightly sedated. Will continue to monitor.
--- NOTE | 2018-11-14 22:20 | NUR ---
RESPIRATORY NOTE: Pt self extubated and currently on 4L NC SPO2 99%. Will continue to monitor pt
[2018-11-15] VITALS (15 sets, daily range): BP systolic 93–116; BP diastolic 40–68
--- NOTE | 2018-11-15 | NUR ---
NURSE NOTES: Patient is doing fine at this moment. RR ranging from 12-20 and patient is rousable to stimulus. BP within good range, afebrile, remains on NC 4L. Will continue to monitor.
[2018-11-15] MEDS: Albuterol/Ipratropium 3ml neb HHN SCH ×10 (00:07→21:31)
--- NOTE | 2018-11-15 01:00 | NUR ---
NURSE NOTES: Wasted Versed and fentanyl gtt accordingly, Charge Nurse Verified.
--- NOTE | 2018-11-15 02:00 | NUR ---
NURSE NOTES: Patient repositioned, arousable to stimulus but still slightly sedated. RR ranging 14-22, BP has been stable and Spo2 has remained above 98%. Patients does open eyes to verbal command. Afebrile at this time. Will continue to monitor.
--- NOTE | 2018-11-15 04:00 | NUR ---
NURSE NOTES: Cleaned patient and repositioned, patient is more awake but a little confused and disoriented. Reality reorientation provided. Patient able to follow conversation, BP has been stable. SpO2 98%, HR [address] ST.
[2018-11-15] MEDS: Solu-MEDROL 125mg Inj IV SCH ×4 (05:45→18:29)
[2018-11-15] MEDS: Piperacillin/Tazobactam 3.375 GM in D5W 110 ML IVPB SCH ×3 (05:45→22:50)
--- NOTE | 2018-11-15 06:00 | NUR ---
NURSE NOTES: Patient sleeping, vitals has remained stable, no form of acute distress observed, remains on Nasal canula. Will continue to monitor.
[2018-11-15 06:06] LABS: HEMATOCRIT 34.2 % (37.0-47.0); MEAN CORPUSCULAR VOLUME 80 FL (80-99); PLATELET COUNT 185 K/UL (150-450); RED BLOOD COUNT 4.26 M/UL (4.20-5.40); WHITE BLOOD COUNT 14.9 K/UL (4.8-10.8)
[2018-11-15 06:38] LABS: ALANINE AMINOTRANSFERASE 15 U/L (12-78); ALBUMIN 2.9 G/DL (3.4-5.0); ALBUMIN/GLOBULIN RATIO 0.9 (1.0-2.7); ALKALINE PHOSPHATASE 65 U/L (46-116); ANION GAP 7 mmol/L (5-15); ASPARTATE AMINO TRANSFERASE 11 U/L (15-37); BILIRUBIN,TOTAL 0.3 MG/DL (0.2-1.0); BLOOD UREA NITROGEN 8 mg/dL (7-18); CALCIUM 8.3 MG/DL (8.5-10.1); CARBON DIOXIDE 26 MMOL/L (21-32); CHLORIDE 102 MMOL/L (98-107); CREATININE 0.6 MG/DL (0.55-1.30); POTASSIUM 3.6 MMOL/L (3.5-5.1); SODIUM 135 MMOL/L (136-145)
--- NOTE | 2018-11-15 07:20 | NUR ---
NURSE NOTES: Report received from ZAKIYA Bell. Pt is drowsy and resting in bed. On bilateral soft wrist restraints. Sinus rhythm on yard hostler. On N/C 4L. O2 sat 100%. Mehta in place draining to gravity. IV to right hand G20, left hand G22, and left FA G20 patent and asymptomatic. D5 1/2NS is running at 50cc/hr. Bed in lowest position. Side rails up x3. Call light within reach. Will resume plan of care. Addendum: 11/15/18 at 0840 by COLLETTE JARAMILLO RN RN NURSE NOTES: Report received from ZAKIYA Bell. Pt is confused, trying to pull out IVs and get out of bed. On bilateral soft wrist restraints. Sinus rhythm on yard hostler. On N/C 4L. O2 sat 100%. Mehta in place draining to gravity. IV to right hand G20, left hand G22, and left FA G20 patent and asymptomatic. D5 1/2NS is running at 50cc/hr. Bed in lowest position. Side rails up x3. Call light within reach. Will resume plan of care.
--- NOTE | 2018-11-15 08:38 | NUR ---
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 STATUS ASTHMATICUS VS: BP 156/81, P 129, T 96.0, RR 16, SpO2 100% ON 12.0 O2 VENT FiO2 45 WBC 14.2, RBC 4.17, ABG pH 7.113, pCO2 86.9, pO2 179.6, K 5.2, URINE KETONES 1+, URINE BLOOD 3+ CXR Impression: Satisfactory nasogastric intubation CXR Impression: Satisfactory endotracheal intubation IS:HEPARIN SUBQ ALBUTEROL 3ml MIDAZOLAM HCI 100ml FENTANYL CITRATE 100ml D5 IV x1L NS IV x1L MAGNESIUM SULFATE 100ml PROPOFOL 100ml ADMITTED TO ICU DC PLAN: RETURN HOME
--- NOTE | 2018-11-15 08:43 | NUR ---
RADIOLOGY DEPT, CHEST X-RAY DONE.-P.DYE
[2018-11-15] MEDS: D5 1/2NS 1,000 ML IV SCH (08:50)
[2018-11-15] MEDS: Heparin 5000 units/ml inj SUBQ SCH ×2 (08:57→21:00)
[2018-11-15] MEDS ORDERED: Pantoprazole Inj IV SCH (09:00)
--- NOTE | 2018-11-15 09:00 | NUR ---
NURSE NOTES: Pt has productive coughs at times. Breathing treatment is being given q2hr as per order. O2 sat 98-100% on N/C 2L. Will continue to monitor.
--- NOTE | 2018-11-15 09:30 | NUR ---
Social Service Note SW attempted to meet with patient to assess for follow up services upon discharge. Patient with a prior of asthma exacerbation due to not having a prescription for asthma medications. Patient has a positive drug screen from opiates, meth and benzos. Patient was receiving a breath treatment during SW interview. Patient did not open her eyes and would not respond to SW questions. Follow up appointment arranged with insurance contracted provider Dr. Eduar Pressley. [address] [address] November 23, at 11:15 am. Follow up appoint to be indicated in dc instructions. Will reassess at a later time.
--- NOTE | 2018-11-15 10:00 | NUR ---
NURSE NOTES: Pt is sleeping and calm in bed. Pt is not trying to remove any objects and able to verbalize understanding. Pt verbalized that she won't remove any objects, including IVs and won't attempt to try to get out of bed. Restraints removed. Bed in lowest position. Side rails up x3. Call light within reach. Bed exit alarm on. Will continue to monitor.
--- NOTE | 2018-11-15 10:06 | Pulmonolgy Critical Care Note ---
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 with: nurses, consultants Critical Care - Objective Last 24 Hour Vital Signs Date Time Temp Pulse Resp B/P (MAP) Pulse Ox O2 Delivery O2 Flow Rate FiO2 11/15/18 09:46 90 14 100 Nasal Cannula 2.0 28 11/15/18 09:38 90 16 99 Mechanical Ventilator 2.0 28 11/15/18 08:00 Nasal Cannula 2.0 11/15/18 08:00 2.0 11/15/18 08:00 98.0 104 15 103/60 (74) 99 11/15/18 07:58 91 14 100 Nasal Cannula 2.0 28 11/15/18 07:49 78 16 100 Mechanical Ventilator 2.0 28 11/15/18 07:29 106 11/15/18 07:00 99 14 105/58 (74) 99 11/15/18 07:00 97 16 106/58 (74) 100 11/15/18 06:00 103 20 112/61 (78) 100 11/15/18 05:25 95 14 100 Nasal Cannula 4.0 36 11/15/18 05:15 94 13 100 Nasal Cannula 4.0 36 11/15/18 05:00 104 18 99/58 (72) 100 11/15/18 04:00 98.6 103 15 93/50 (64) 99 11/15/18 04:00 102 11/15/18 04:00 Nasal Cannula 4.0 11/15/18 04:00 4.0 11/15/18 04:00 98.6 107 15 93/50 (64) 100 11/15/18 03:00 107 16 101/46 (64) 100 11/15/18 03:00 107 15 101/46 (64) 99 11/15/18 02:58 94 14 100 Nasal Cannula 4.0 36 11/15/18 02:50 93 13 100 Nasal Cannula 4.0 36 11/15/18 02:00 107 15 99/53 (68) 99 11/15/18 02:00 97 16 99/53 (68) 100 11/15/18 01:00 105 16 101/46 (64) 100 11/15/18 01:00 105 15 101/46 (64) 99 11/15/18 00:15 100 14 100 Nasal Cannula 3.0 32 11/15/18 00:07 98 14 100 Nasal Cannula 4.0 36 11/15/18 00:00 98.5 107 15 96/40 (58) 97 11/15/18 00:00 4.0 11/15/18 00:00 98 11/15/18 00:00 98.5 107 15 96/40 (58) 100 11/15/18 00:00 Nasal Cannula 4.0 11/14/18 23:00 105 13 92/46 (61) 99 11/14/18 22:37 99 13 100 Nasal Cannula 3.0 32 11/14/18 22:30 Nasal Cannula 4.0 36 11/14/18 22:30 96 11 99/55 (70) 100 11/14/18 22:30 91 12 99 Nasal Cannula 4.0 36 11/14/18 22:20 4.0 11/14/18 22:15 102 21 113/96 (102) 99 11/14/18 22:00 100 12 113/96 (102) 100 11/14/18 22:00 96 18 104/59 (74) 100 11/14/18 21:45 94 21 109/56 (73) 100 11/14/18 21:30 93 19 106/55 (72) 100 11/14/18 21:30 93 19 106/55 (72) 100 11/14/18 21:15 90 16 107/52 (70) 100 11/14/18 21:00 90 16 106/53 (70) 100 11/14/18 21:00 90 16 106/53 (70) 100 11/14/18 20:57 89 16 100 Mechanical Ventilator 40 11/14/18 20:50 83 18 100 Mechanical Ventilator 40 11/14/18 20:49 83 18 40 11/14/18 20:45 86 19 106/62 (77) 100 11/14/18 20:30 88 19 100/58 (72) 100 11/14/18 20:30 88 19 100/58 (72) 100 11/14/18 20:15 87 19 100/54 (69) 100 11/14/18 20:00 97.3 88 17 98/59 (72) 100 11/14/18 20:00 40 11/14/18 20:00 97.3 88 17 98/59 (72) 100 11/14/18 20:00 18 Mechanical Ventilator 40 11/14/18 20:00 18 Mechanical Ventilator 40 11/14/18 20:00 76 11/14/18 20:00 Mechanical Ventilator 11/14/18 19:46 74 16 97/58 (71) 100 11/14/18 19:46 77 16 100 Mechanical Ventilator 40 11/14/18 19:44 16 Mechanical Ventilator 40 11/14/18 19:38 79 16 40 11/14/18 19:38 79 16 100 Mechanical Ventilator 40 11/14/18 19:30 80 17 98/55 (69) 100 11/14/18 19:30 80 17 98/55 (69) 100 11/14/18 19:15 78 17 99/59 (72) 100 11/14/18 19:00 85 21 91/57 (68) 100 11/14/18 19:00 16 Mechanical Ventilator 40 11/14/18 19:00 16 Mechanical Ventilator 40 11/14/18 19:00 17 Mechanical Ventilator 40 11/14/18 19:00 85 21 91/57 (68) 100 11/14/18 18:45 86 17 97/61 (73) 100 11/14/18 18:30 81 17 96/55 (69) 100 11/14/18 18:15 86 17 96/56 (69) 100 11/14/18 18:00 17 Mechanical Ventilator 40 11/14/18 18:00 17 40 11/14/18 18:00 87 18 94/53 (67) 100 11/14/18 18:00 87 18 94/53 (67) 100 11/14/18 17:48 79 16 100 Mechanical Ventilator 40 11/14/18 17:43 79 17 100 Mechanical Ventilator 40 11/14/18 17:30 97.6 79 16 95/58 (70) 100 11/14/18 17:00 85 18 99/55 (70) 100 11/14/18 17:00 17 Mechanical Ventilator 40 11/14/18 17:00 17 Mechanical Ventilator 40 11/14/18 16:48 74 16 100 Mechanical Ventilator 40 11/14/18 16:43 82 16 100 Mechanical Ventilator 40 11/14/18 16:43 82 16 40 11/14/18 16:30 83 16 93/56 (68) 100 11/14/18 16:00 40 11/14/18 16:00 Mechanical Ventilator 11/14/18 16:00 17 Mechanical Ventilator 40 11/14/18 16:00 17 Mechanical Ventilator 40 11/14/18 16:00 86 18 94/55 (68) 100 11/14/18 15:49 91 17 100 Mechanical Ventilator 40 11/14/18 15:45 90 12 95/55 (68) 100 11/14/18 15:43 91 17 100 Mechanical Ventilator 40 11/14/18 15:42 87 11/14/18 15:30 92 17 97/52 (67) 100 11/14/18 15:24 96.1 11/14/18 15:15 91 16 101/56 (71) 100 11/14/18 15:00 94 16 92/58 (69) 100 11/14/18 15:00 17 Mechanical Ventilator 40 11/14/18 15:00 16 Mechanical Ventilator 40 11/14/18 14:56 97 16 100 Mechanical Ventilator 40 11/14/18 14:54 19 Mechanical Ventilator 40 11/14/18 14:51 91 16 40 11/14/18 14:50 92 16 100 Mechanical Ventilator 40 11/14/18 14:45 92 16 100/58 (72) 100 11/14/18 14:30 95 16 100/59 (73) 100 11/14/18 14:15 99 19 100/57 (71) 100 11/14/18 14:08 16 Mechanical Ventilator 40 11/14/18 14:00 101 7 103/54 (70) 100 11/14/18 14:00 17 Mechanical Ventilator 40 11/14/18 13:52 98 17 100 Mechanical Ventilator 40 11/14/18 13:46 98 17 100 Mechanical Ventilator 40 11/14/18 13:30 98 16 103/55 (71) 100 11/14/18 13:15 99 16 99/57 (71) 100 11/14/18 13:00 16 Mechanical Ventilator 40 11/14/18 13:00 98 30 93/55 (68) 100 11/14/18 12:52 93 16 100 Mechanical Ventilator 40 11/14/18 12:49 91 16 40 11/14/18 12:45 97 17 112/62 (79) 100 11/14/18 12:45 93 16 100 Mechanical Ventilator 40 11/14/18 12:43 96.1 121 19 103/77 100 Mechanical Ventilator 12.0 45 11/14/18 12:35 19 Mechanical Ventilator 45 11/14/18 12:30 97 19 106/65 (79) 100 11/14/18 12:29 17 112/62 Mechanical Ventilator 40 11/14/18 12:25 45 11/14/18 12:20 17 Mechanical Ventilator 40 11/14/18 12:15 97 21 103/64 (77) 100 11/14/18 12:09 17 Mechanical Ventilator 40 11/14/18 12:09 17 117/55 Mechanical Ventilator 40 11/14/18 12:04 97 11/14/18 12:00 Mechanical Ventilator 11/14/18 12:00 99 17 117/55 (75) 100 11/14/18 11:45 100 18 118/96 (103) 100 11/14/18 11:33 101 11/14/18 11:30 98.0 95 19 109/55 (73) 100 11/14/18 11:09 21 45 11/14/18 11:09 21 103/77 Mechanical Ventilator 45 11/14/18 11:04 Mechanical Ventilator 45 11/14/18 10:54 18 Mechanical Ventilator 45 11/14/18 10:54 22 98/56 Mechanical Ventilator 45 11/14/18 10:48 108 28 50 11/14/18 10:39 22 Mechanical Ventilator 45 11/14/18 10:34 22 Mechanical Ventilator 45 11/14/18 10:09 19 Mechanical Ventilator 45 11/14/18 10:09 21 120/69 Mechanical Ventilator 45 Status: awake HEENT: atraumatic Neck: full ROM Lungs: clear Heart: HR/BP stable Abdomen: soft, non-tender, active bowel sounds Extremities: no C/C/E Micro: Microbiology Date/Time Source Procedure Growth Status 11/14/18 12:49 Sputum Gram Stain Pending Resulted 11/14/18 12:49 Sputum Sputum Culture - Preliminary NORMAL UPPER RESPIRATORY SU AT 24 ... Resulted Accucheck: 171 Critical Care - Subjective ROS Limited/Unobtainable: Yes Interval Events: self extubated yesterday Condition: critical EKG Rhythm: Sinus Rhythm FI02: 28 Vent Support Breath Rate: 16 Vent Support Mode: AC Vent Tidal Volume: 500 Sputum Amount: None PEEP: 5.0 PIP: 33 Tube Feeding Amount: 10 I&O: Intake and Output 11/14/18 11/15/18 19:00 07:00 Intake Total 593.912 ml 806.0 ml Output Total 905 ml Balance 593.912 ml -99.0 ml Intake IV Total 593.912 ml 786.0 ml Tube Feeding 20 ml Output Urine Total 905 ml # Voids 415 160 CXR: no acute infiltrate ET-Tube: 7.5 ET Position: 24 Labs: Laboratory Tests Test 11/14/18 13:50 11/14/18 22:57 11/15/18 05:09 11/15/18 07:30 Arterial Blood pH 7.341 (7.350-7.450) 7.368 (7.350-7.450) 7.405 (7.350-7.450) Arterial Blood Partial Pressure CO2 47.9 mmHg (35.0-45.0) H 44.4 mmHg (35.0-45.0) 42.9 mmHg (35.0-45.0) Arterial Blood Partial Pressure O2 170.6 mmHg (75.0-100.0) H 79.8 mmHg (75.0-100.0) 90.6 mmHg (75.0-100.0) Arterial Blood HCO3 25.3 mmol/L (22.0-26.0) 25.0 mmol/L (22.0-26.0) 26.3 mmol/L (22.0-26.0) H Arterial Blood Oxygen Saturation 98.7 % (95-100) 96.0 % (95-100) 96.9 % (95-100) Arterial Blood Base Excess -0.8 (-2-2) -0.5 (-2-2) 1.3 (-2-2) Kike Test Positive Positive Positive White Blood Count 14.9 K/UL (4.8-10.8) H Red Blood Count 4.26 M/UL (4.20-5.40) Hemoglobin 11.0 G/DL (12.0-16.0) L Hematocrit 34.2 % (37.0-47.0) L Mean Corpuscular Volume 80 FL (80-99) # Mean Corpuscular Hemoglobin 25.7 PG (27.0-31.0) L Mean Corpuscular Hemoglobin Concent 32.0 G/DL (32.0-36.0) Red Cell Distribution Width 14.0 % (11.6-14.8) Platelet Count 185 K/UL (150-450) Mean Platelet Volume 8.3 FL (6.5-10.1) Neutrophils (%) (Auto) % (45.0-75.0) Lymphocytes (%) (Auto) % (20.0-45.0) Monocytes (%) (Auto) % (1.0-10.0) Eosinophils (%) (Auto) % (0.0-3.0) Basophils (%) (Auto) % (0.0-2.0) Erythrocyte Sedimentation Rate 17 MM/HR (0-20) Sodium Level 135 MMOL/L (136-145) L Potassium Level 3.6 MMOL/L (3.5-5.1) Chloride Level 102 MMOL/L (98-107) Carbon Dioxide Level 26 MMOL/L (21-32) Anion Gap 7 mmol/L (5-15) Blood Urea Nitrogen 8 mg/dL (7-18) Creatinine 0.6 MG/DL (0.55-1.30) Estimat Glomerular Filtration Rate > 60 mL/min (>60) Glucose Level 340 MG/DL (74-106) #H Calcium Level 8.3 MG/DL (8.5-10.1) L Phosphorus Level 3.0 MG/DL (2.5-4.9) Magnesium Level 1.7 MG/DL (1.8-2.4) L Total Bilirubin 0.3 MG/DL (0.2-1.0) Aspartate Amino Transf (AST/SGOT) 11 U/L (15-37) L Alanine Aminotransferase (ALT/SGPT) 15 U/L (12-78) Alkaline Phosphatase 65 U/L (46-116) Total Protein 6.3 G/DL (6.4-8.2) L Albumin 2.9 G/DL (3.4-5.0) L Globulin 3.4 g/dL Albumin/Globulin Ratio 0.9 (1.0-2.7) L Zarrabi,Mirali MD Nov 15, 2018 10:06
--- NOTE | 2018-11-15 11:40 | NUR ---
TRANSFER TO FLOOR: Patient transferred to [facility], 4E. Report given to ZAKIYA Champion. Belongings and medications given to ZAKIYA Champion. Endorsed to Gary that home meds are in pharmacy and some of the belongings are with security.
--- NOTE | 2018-11-15 12:00 | NUR ---
Received patient from Kayleigh Wheeler RN, patient is resting comfortably, no distress noted, belongings reviewed, no issues noted, bed is locked and in lowest position, call light within reach, will continue to monitor.
[2018-11-15] MEDS ORDERED: Albuterol/Ipratropium 3ml neb HHN PRN (12:15)
--- NOTE | 2018-11-15 12:36 | Internal Med Progress Note ---
Subjective Date of Service: Nov 15, 2018 Physician Name Harsha Rivera Attending Physician Moises Garvey MD Current Medications Medications (Trade) Dose Ordered Sig/Atif Route PRN Reason Start Time Stop Time Status Last Admin Dose Admin Albuterol/ Ipratropium (Albuterol/ Ipratropium) 3 ml Q2HRT HHN 11/15/18 13:00 11/17/18 11:43 Albuterol/ Ipratropium (Albuterol/ Ipratropium) 3 ml Q4H PRN HHN Shortness of Breath 11/15/18 12:15 11/19/18 12:14 Dextrose (Dextrose 50%) 25 ml Q30M PRN IV Hypoglycemia 11/15/18 11:45 12/14/18 12:14 Dextrose (Dextrose 50%) 50 ml Q30M PRN IV Hypoglycemia 11/15/18 12:00 12/14/18 12:29 Heparin Sodium (Porcine) (Heparin 5000 units/ml) 5,000 units EVERY 12 HOURS SUBQ 11/15/18 21:00 12/14/18 20:59 Methylprednisolone Sodium Succinate (Solu-MEDROL) 60 mg EVERY 6 HOURS IV 11/15/18 12:00 12/14/18 17:59 Pantoprazole (Protonix) 40 mg DAILY IV 11/16/18 09:00 12/15/18 08:59 Piperacillin Sod/ Tazobactam Sod 3.375 gm/Dextrose 110 ml @ 27.5 mls/hr EVERY 8 HOURS IVPB 11/15/18 14:00 11/21/18 13:59 Allergies: Coded Allergies: No Known Allergies (Unverified , 11/08/18) ROS Limited/Unobtainable: No Constitutional: Reports: no symptoms HEENT: Reports: no symptoms Cardiovascular: Reports: no symptoms Respiratory: Reports: shortness of breath, wheezing Gastrointestinal/Abdominal: Reports: no symptoms Genitourinary: Reports: no symptoms Neurologic/Psychiatric: Reports: no symptoms Subjective 27 YO F admitted with asthma exacerbation and respiratory failure. Cover for Int Med-Dr Garvey. ICU Objective Last Vital Signs Date Time Temp Pulse Resp B/P (MAP) Pulse Ox O2 Delivery O2 Flow Rate FiO2 11/15/18 11:20 91 16 99 Nasal Cannula 2.0 28 11/15/18 11:00 116/62 (80) 11/15/18 08:00 98.0 Laboratory Tests Test 11/14/18 13:50 11/14/18 22:57 11/15/18 05:09 11/15/18 07:30 Arterial Blood pH 7.341 (7.350-7.450) 7.368 (7.350-7.450) 7.405 (7.350-7.450) Arterial Blood Partial Pressure CO2 47.9 mmHg (35.0-45.0) H 44.4 mmHg (35.0-45.0) 42.9 mmHg (35.0-45.0) Arterial Blood Partial Pressure O2 170.6 mmHg (75.0-100.0) H 79.8 mmHg (75.0-100.0) 90.6 mmHg (75.0-100.0) Arterial Blood HCO3 25.3 mmol/L (22.0-26.0) 25.0 mmol/L (22.0-26.0) 26.3 mmol/L (22.0-26.0) H Arterial Blood Oxygen Saturation 98.7 % (95-100) 96.0 % (95-100) 96.9 % (95-100) Arterial Blood Base Excess -0.8 (-2-2) -0.5 (-2-2) 1.3 (-2-2) Kike Test Positive Positive Positive White Blood Count 14.9 K/UL (4.8-10.8) H Red Blood Count 4.26 M/UL (4.20-5.40) Hemoglobin 11.0 G/DL (12.0-16.0) L Hematocrit 34.2 % (37.0-47.0) L Mean Corpuscular Volume 80 FL (80-99) # Mean Corpuscular Hemoglobin 25.7 PG (27.0-31.0) L Mean Corpuscular Hemoglobin Concent 32.0 G/DL (32.0-36.0) Red Cell Distribution Width 14.0 % (11.6-14.8) Platelet Count 185 K/UL (150-450) Mean Platelet Volume 8.3 FL (6.5-10.1) Neutrophils (%) (Auto) % (45.0-75.0) Lymphocytes (%) (Auto) % (20.0-45.0) Monocytes (%) (Auto) % (1.0-10.0) Eosinophils (%) (Auto) % (0.0-3.0) Basophils (%) (Auto) % (0.0-2.0) Erythrocyte Sedimentation Rate 17 MM/HR (0-20) Sodium Level 135 MMOL/L (136-145) L Potassium Level 3.6 MMOL/L (3.5-5.1) Chloride Level 102 MMOL/L (98-107) Carbon Dioxide Level 26 MMOL/L (21-32) Anion Gap 7 mmol/L (5-15) Blood Urea Nitrogen 8 mg/dL (7-18) Creatinine 0.6 MG/DL (0.55-1.30) Estimat Glomerular Filtration Rate > 60 mL/min (>60) Glucose Level 340 MG/DL (74-106) #H Calcium Level 8.3 MG/DL (8.5-10.1) L Phosphorus Level 3.0 MG/DL (2.5-4.9) Magnesium Level 1.7 MG/DL (1.8-2.4) L Total Bilirubin 0.3 MG/DL (0.2-1.0) Aspartate Amino Transf (AST/SGOT) 11 U/L (15-37) L Alanine Aminotransferase (ALT/SGPT) 15 U/L (12-78) Alkaline Phosphatase 65 U/L (46-116) Total Protein 6.3 G/DL (6.4-8.2) L Albumin 2.9 G/DL (3.4-5.0) L Globulin 3.4 g/dL Albumin/Globulin Ratio 0.9 (1.0-2.7) L Microbiology Date/Time Source Procedure Growth Status 11/14/18 12:49 Sputum Gram Stain Pending Resulted 11/14/18 12:49 Sputum Sputum Culture - Preliminary NORMAL UPPER RESPIRATORY SU AT 24 ... Resulted Intake and Output 11/14/18 11/15/18 18:59 06:59 Intake Total 474.412 ml 848.0 ml Output Total 830 ml Balance 474.412 ml 18.0 ml Intake IV Total 474.412 ml 828.0 ml Tube Feeding 20 ml Output Urine Total 830 ml # Voids 370 205 Objective PHYSICAL EXAMINATION: VITAL SIGNS: Temperature 96.1, respirations 17, pulse 91, and blood pressure 112/62. GENERAL: The patient is a well-developed and well-nourished female, in no apparent distress. HEENT: Eyes, pupils are equal and responsive to light and accommodation. Extraocular movements are intact. NECK: Supple without lymphadenopathy. CHEST: Diffuse wheezes in bilateral lung carr. Otherwise, without crackles. CARDIOVASCULAR: Regular rhythm and rate. S1 and S2 are normal without murmurs, rubs, or gallops. ABDOMEN: Soft, nontender, and nondistended. Positive bowel sounds. No evidence of hepatosplenomegaly. Currently, no rebound or guarding noted. EXTREMITIES: Negative for clubbing, cyanosis, or edema. NEUROLOGIC: Cranial nerves II through XII are grossly intact without focal deficits. Assessment/Plan Problem List: (1) Status asthmaticus Assessment & Plan: Continue zosyn, IV solumedrol and duoneb per pulmonary (2) Respiratory failure Assessment & Plan: S/P extubation. Tolerating nasal canula. Follow pulmonary recs (3) Acute asthma exacerbation (4) Polysubstance dependence including opioid drug with daily use Status: Harsha Panda MD Nov 15, 2018 12:36
--- NOTE | 2018-11-15 16:27 | NUR ---
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
[2018-11-15] MEDS ORDERED: NS 275ml ONE (17:58)
[2018-11-15] MEDS ORDERED: D5 1/2NS 1000ml IV ONE (17:58)
[2018-11-15] MEDS ORDERED: Tubing IV Secondary IV ONE (17:58)
[2018-11-15] MEDS ORDERED: Sterile Water Irrig 1000ml IRRIG ONE (17:58)
--- NOTE | 2018-11-15 19:33 | NUR ---
NURSE NOTES: HAND-OFF: Report given to Renetta.
--- NOTE | 2018-11-15 19:35 | NUR ---
NURSE NOTES: Received patient asleep in bed, no s/s of acute distress. IV sites asymptomatic, dressing dry and intact. On 2L nasal cannula. Bed on lowest position, 2 side rails up, call light and belongings within reach.
[2018-11-16 00:35] VITALS: BP 102/63
[2018-11-16] MEDS: Albuterol/Ipratropium 3ml neb HHN SCH ×2 (03:19→08:13)
[2018-11-16 04:00] VITALS: BP 110/67
[2018-11-16] MEDS: Piperacillin/Tazobactam 3.375 GM in D5W 110 ML IVPB SCH (05:25)
[2018-11-16] MEDS: Solu-MEDROL 125mg Inj IV SCH ×2 (05:34)
[2018-11-16 06:43] LABS: HEMATOCRIT 37.5 % (37.0-47.0); HEMOGLOBIN 12.1 G/DL (12.0-16.0); MEAN CORPUSCULAR VOLUME 80 FL (80-99); PLATELET COUNT 198 K/UL (150-450); RED BLOOD COUNT 4.67 M/UL (4.20-5.40); RED CELL DISTRIBUTION WIDTH 14.2 % (11.6-14.8); WHITE BLOOD COUNT 17.8 K/UL (4.8-10.8)
--- NOTE | 2018-11-16 07:10 | NUR ---
HAND-OFF: Report given to ZAKIYA Monge.
[2018-11-16 07:15] LABS: ALANINE AMINOTRANSFERASE 17 U/L (12-78); ALBUMIN 3.1 G/DL (3.4-5.0); ALBUMIN/GLOBULIN RATIO 0.8 (1.0-2.7); ALKALINE PHOSPHATASE 72 U/L (46-116); ANION GAP 4 mmol/L (5-15); ASPARTATE AMINO TRANSFERASE 10 U/L (15-37); BILIRUBIN,TOTAL 0.3 MG/DL (0.2-1.0); BLOOD UREA NITROGEN 14 mg/dL (7-18); CARBON DIOXIDE 30 MMOL/L (21-32); CHLORIDE 105 MMOL/L (98-107); CREATININE 0.7 MG/DL (0.55-1.30); PHOSPHORUS 3.1 MG/DL (2.5-4.9); SODIUM 139 MMOL/L (136-145)
[2018-11-16 08:00] VITALS: BP 121/97
--- NOTE | 2018-11-16 08:13 | NUR ---
NURSE NOTES: Patient is asleep. No s/s of distress at the moment. Side rails are up X2, bed is locked, in lowest position, and call light is within reach. Will continue to monitor.
[2018-11-16] MEDS: Heparin 5000 units/ml inj SUBQ SCH (08:43)
[2018-11-16] MEDS ORDERED: Pantoprazole Inj IV SCH (09:00)
--- NOTE | 2018-11-16 09:31 | Diagnostic Imaging Report ---
Indication: Post nasogastric tube placement Technique: Supine view of the upper abdomen Comparison: none Findings: There is a nasogastric tube in place, tip projected at the level of the gastric antrum. Included bowel gas is unremarkable. Impression: Satisfactory position of nasogastric tube This agrees with the preliminary interpretation provided overnight by [facility] teleradiology service.
--- NOTE | 2018-11-16 09:32 | Diagnostic Imaging Report ---
Indication: Short of breath Technique: One view of the chest Comparison: 11/14/2018 Findings: Interim removal of previously demonstrated endotracheal and nasogastric tubes. The lungs and pleural spaces are clear. The heart size is normal Impression: Negative Note interim extubation
--- NOTE | 2018-11-16 10:39 | NUR ---
NURSE NOTES: Patient alert and oriented X4. Patient reports she wants to leave. Patient educated on risks of leaving hospital. Patient verbalized understanding. Patient decided to leave against medical advice. Charge nurse, Nursing Lawn Care Worker, Dr. Garvey, and Dr. Rivera notified. Belongings reviewed and accounted for. IV removed.
--- NOTE | 2018-11-17 10:30 | Discharge Summary ---
Discharge Summary Discharge Summary _ DATE OF ADMISSION: 11/14/2018 DATE OF DISCHARGE: 11/16/2018 OWNER MANAGER: Dr. Sondra Shaw BRIEF HOSPITAL COURSE: Patient is a 27-year-old female, with history of asthma, presented to ED with chief complaint of shortness of breath. Patient presented to [facility] emergency room due to shortness of breath and wheezing. Patient had multiple ER admissions for severe asthma exacerbation. Last admission was within the last month. Patient was very anxious and agitated. She has a known history of drug abuse. On arrival to ED, patient was wheezing, tachypneic and agitated. She was altered and sleepy at times. Blood work did not show any leukocytosis, hemoglobin was 10, hematocrit 36. Potassium was slightly elevated at 5.2. She was given 0.4 mg of Narcan IM and patient immediately woke up and became very agitated and combative. She was given nebulizer treatment. ABG was consistent with respiratory failure. PH 7.1, CO2 87, HCO3 27. Patient required emergent rapid intubation. Urine toxicology was positive for opiates, amphetamine and benzodiazepine. She was then admitted to ICU for respiratory failure due to acute asthma exacerbation. Patient was sedated. Orogastric tube was inserted. She was started empirically on intravenous Solu-Medrol and Zosyn. Chest x-ray did not show acute process. She was started on tube feedings. On the night of admission, patient self extubated. Post extubation, she was placed on 4 L nasal cannula, O2 saturation were stable. She was eventually transferred out of ICU. O2 requirement was decreased. Bilateral soft wrist restraints were removed. She was breathing well and was saturating well even on room air. Diet was advanced. Full treatment was not carried out as patient left against medical advise. FINAL DIAGNOSES: Acute respiratory failure due to severe asthma exacerbation, requiring intubation status post self extubation Status asthmaticus Substance dependence including opioid drug with daily use DISPOSITION: Patient left against medical advise. I have been assigned to complete a discharge summary on this account, I was not involved with the patient's management. Linnette Rivas NP Nov 17, 2018 10:30
== END 2018-11-16 10:20 | disposition left against medical advice (07) | DRG 141 ==
LOC: EMR 08:02 → EDBEDREQ 09:29 → ICU 09:47 → EDBEDREQ 10:02 → 4E 11-15 11:40
PROC: 5A1935Z Respiratory Ventilation, Less than 24 Consecutive Hours (ICD-10-PCS; principal; 2018-11-14)
PROC: 0BH17EZ Insertion of Endotracheal Airway into Trachea, Via Natural or Artificial Opening (ICD-10-PCS; 2018-11-14)
DX: J45.902 Unspecified asthma with status asthmaticus (principal); J96.00 Acute respiratory failure, unspecified whether with hypoxia or hypercapnia; F11.20 Opioid dependence, uncomplicated; F19.20 Other psychoactive substance dependence, uncomplicated
CPT/HCPCS: 31500; 36415; 36600; 71045; 74018; 80053; 80307; 80329; 81003; 81025; 82803; 83735; 83880; 84100; 84443; 84478; 84484; 85007; 85025; 85651; 86140; 87070; 87081; 87205; 93005; 94002; 94003; 94640; 94664; 94760; 96361; 96365; 96366; 96375; 96376; 99291; J2310; J7620

== ENCOUNTER 2019-03-28 03:08 | Emergency (ER) | payer MEDICAID ==
[~2019-03-28] VITALS: Ht 167.6 cm; Wt 77.1 kg
[2019-03-28] MEDS ORDERED: ALBUTEROL SULF8.5 GM INH (03:26)
--- NOTE | 2019-03-28 03:26 | Emergency Room Report ---
History of Present Illness General Chief Complaint: Medication Refill Source: Patient Present Illness HPI 28-year-old female presents for STD check, patient states that her boyfriend had discharge, told her to come in, no fevers chills, patient has been a symptomatic, she was told to come in today, she thinks maybe she may have had discharged today but otherwise has had no pain no dysuria patient presents for evaluation. Patient denies any aggravating or alleviating factors to the discharge. Allergies: Coded Allergies: No Known Allergies (Unverified , 11/08/18) Patient History Past Medical History: see triage record Last Menstrual Period: 03/19/19 Now: No Reviewed Nursing Documentation: PMH: Agreed; PSxH: Agreed Nursing Documentation-PMH Past Medical History: No History, Except For Hx Cardiac Problems: No Hx Asthma: Yes Hx Cancer: No Hx Gastrointestinal Problems: No Hx Neurological Problems: No Review of Systems Genitourinary: Reports: discharge All Other Systems: negative except mentioned in HPI Physical Exam Vital Signs Date Time Temp Pulse Resp B/P (MAP) Pulse Ox O2 Delivery O2 Flow Rate FiO2 03/28/19 03:17 97.7 88 16 107/67 (80) 99 Room Air Sp02 EP Interpretation: reviewed, normal General Appearance: well appearing, no apparent distress, alert Head: normocephalic, atraumatic Eyes: bilateral eye PERRL, bilateral eye EOMI ENT: uvula midline, moist mucus membranes Neck: supple, thyroid normal, supple/symm/no masses Respiratory: lungs clear, no respiratory distress, no retraction, no accessory muscle use Cardiovascular #1: normal peripheral pulses, regular rate, rhythm, no edema, no gallop, no murmur Gastrointestinal: non tender, soft, no guarding, no rebound Musculoskeletal: normal inspection Neurologic: alert, oriented x3 Psychiatric: mood/affect normal Skin: no rash, warm/dry Medical Decision Making Diagnostic Impression: Primary Impression: STD (female) Additional Impression: Encounter for medication refill ER Course Patient asymptomatic, had an exposure to STD, boyfriend with discharge now, will provide patient with ceftriaxone and azithromycin, patient referral to clinics for formal testing. Last Vital Signs Date Time Temp Pulse Resp B/P (MAP) Pulse Ox O2 Delivery O2 Flow Rate FiO2 03/28/19 03:17 97.7 88 16 107/67 (80) 99 Room Air Disposition: HOME, SELF-CARE Condition: Stable Scripts Albuterol Sulfate* (ALBUTEROL SULFATE MDI*) 8.5 Gm Hfa.aer.ad 2 PUFF INH Q6H PRN for Shortness of Breath, #1 EA 0 Refills Prov: Reggie Burgos MD 03/28/19 Referrals: [facility] Patient Instructions: Chlamydia, Female, [id number], Gonorrhea, Safe Sex, Sexually Transmitted Disease, [id number], Medicine Refill at the Emergency Department Additional Instructions: The patient was provided with discharge instructions, notified to follow-up with a primary care doctor and or specialist in the next 24-48 hours, and to return to the ED if they have worsening of their symptoms. Please note that this report is being documented using [employer] technology. This can lead to erroneous entry secondary to incorrect interpretation by the dictating instrument. Reggie Burgos MD Mar 28, 2019 03:26
--- NOTE | 2019-03-28 03:28 | NUR ---
ED Nurse Note: pt walked in c/o refill for asthma medication and STD check up. Pt states her partner had STD sx and wanted to get checked out, pt states she had occasional discharge but denies any sx at this time. pt reports her partner had two other partners. will cont monitor.
[2019-03-28 03:30] VITALS: BP 107/67
[2019-03-28] MEDS ORDERED: Azithromycin 250mg tab ORAL ONE (03:30)
[2019-03-28] MEDS ORDERED: Lidocaine 1% MPF 10mg/ml 5ml INJ ONE (03:30)
--- NOTE | 2019-03-28 03:44 | NUR ---
ED Nurse Note: pt cleared to be d/c per ERMD, pt discharge and aftercare instruction provided w/ prescription, pt education done via discussion and handout, pt advised to follow up with pcp or return to ed if changes in condition, vss, ambulatory w/ steady gait, left w/ all belongings.
[2019-03-28 03:45] VITALS: BP 107/67
== END 2019-03-28 03:45 | disposition home or self-care (01) ==
LOC: EMR 03:26
DX: Z20.2 Contact with and (suspected) exposure to infections with a predominantly sexual mode of transmission (principal); N89.8 Other specified noninflammatory disorders of vagina
CPT/HCPCS: 81025; 96372; 99283; J0696; Q0144